=== PATIENT | female | born 1960 | race Caucasian/White ===

== ENCOUNTER 2016-10-01 11:35 | Observation (INO) | payer OTHER, BC ==
[2016-10-01] MEDS ORDERED: Ketorolac 30 MG/ML SDV IVPUSH ONE (11:40)
[2016-10-01] MEDS ORDERED: HYDROmorphone 1 MG/ML Syringe IVPUSH PRN (16:01)
[2016-10-01 16:37] LABS: CHLORIDE,CL 104 mmol/L (98-107); SODIUM,NA 140 mmol/L (136-145)
[2016-10-01] MEDS: Acetaminophen/HYDROcodone 325-10 MG Tab PO PRN ×2 (16:47→20:44)
[2016-10-01] MEDS: Ibuprofen 200 MG Tab PO PRN (19:43)
[2016-10-02] MEDS: Acetaminophen/HYDROcodone 325-10 MG Tab PO PRN ×5 (01:53→19:36)
--- NOTE | 2016-10-02 08:38 | ER ---
Date of Service: 10/01/2016 SUBJECTIVE: Yolie presents to emergency room with complaints of left knee pain. The patient states that she misstepped and fell onto her knee while at work. She states that since that time she has been experiencing severe discomfort and inability to bear weight without severe discomfort. EMS was summoned to the [facility], where she is an employee, who subsequently immobilized the patient's knee, gave her 1 mg of Dilaudid IV, and transported her to [facility]. On arrival, the patient was continuing to experience quite a bit of discomfort. She denies any injury other than what is isolated to her left knee. She does have a history of the right knee replacement and history of steroid injection of the left knee by [facility] surgery approximately 2 weeks ago for osteoarthritis. PAST MEDICAL HISTORY: 1. Right knee replacement. 2. Hypothyroidism. 3. Migraine headaches. 4. Anxiety. 5. Depression. 6. Asthma. 7. Hysterectomy. MEDICATIONS: 1. Levothyroxine 150 mcg daily. 2. BuSpar 10 mg daily. 3. Imitrex 100 mg p.r.n. 4. Citalopram 30 mg daily. ALLERGIES: NKDA. REVIEW OF SYSTEMS: General: No fever or chills. HEENT: Denies striking head. Chest: No shortness of breath or chest pain. Denies any palpitations. Abdomen: Denies any nausea, vomiting, or diarrhea. No melena, hematochezia, or hematemesis. Pelvis: Denies any pelvic pain. Musculoskeletal: Please see history of present illness. Complains only that of left knee pain. Neurovascular circulation, denies any numbness or tingling in distal portion of the left lower extremity. PHYSICAL EXAMINATION: General: This is a 55-year-old female, who is in no acute distress. Vital Signs: Blood pressure is 147/95, heart rate is 82, temperature is 36.5, respiratory rate is 20. Skin: Warm, pink, and dry. HEENT. Head is normocephalic, atraumatic. Lungs: Clear to auscultation. Heart: Regular rate and rhythm. Abdomen: Soft, nontender. There is no hepatosplenomegaly noted. There are no masses noted. Extremities: She does have point tenderness to the knee and particularly in the area of the distal femur. No obvious deformity noted to the patella or tibia/fibula. No obvious step-offs or deformity noted. Neurovascular, circulation, sensation, and motor function all within normal limits in the distal portion of the left lower extremity. RADIOGRAPHIC DATA: Plain film x-rays of the patient's left knee were obtained and she did have evidence of a nondisplaced multidirectional intraarticular fracture of the distal femur extending from lateral aspect on the proximal portion to medial portion and the distal portion. CT scan was performed at the request of Dr. Flower at [facility]. Again, there was evidence of fracture without significant step-off or distraction at the articular surface. There was moderate lipohemarthrosis in the articular space with evidence of moderate advanced tricompartmental osteoarthritis. The bones were noted to be mildly osteopenic. EMERGENCY ROOM COURSE: IV access had been established by the [facility] ambulance. The patient was given Toradol 30 mg IV. She stated knee immobilizer was placed. The patient stated that the discomfort was tolerable if she was not moving the extremity. ASSESSMENT: Left distal femur fracture involving the articular surface. PLAN: I did speak with Dr. Flower the orthopedic surgeon on-call at [facility]. He states that it would be best if this injury was handled nonoperatively as the patient will likely require replacement of that knee. He states that the patient will do better from an operative and postoperative standpoint if this injury is allowed to heal itself. Discussed findings with the patient and decision was made to admit the patient on observation status, so she can get some things taken care of at her home, regarding help with her activities for daily living, procuring a bedside commode, and other necessities. I did speak with Dr. Maria Eugenia Nick regarding possible acute admission and subsequent transition to swing bed, but decision was made that this would be impossible as she would not require a 3-day acute hospital stay. Subsequently decision was made to admit the patient to observation with PT and OT as well as Railway Switchman consult tomorrow to see how things will play out when she is discharged. We will treat her pain with hydrocodone and Dilaudid for severe discomfort, not amenable to oral analgesics. All questions were answered. The patient is a code level 1 with intubation and resuscitation. MWK: 10/01/2016 15:53:51 MODL: 10/01/2016 21:58:00 /[id number]
[2016-10-02] MEDS ORDERED: SUMAtriptan 50 MG Tab PO PRN (11:47)
[2016-10-02] MEDS: busPIRone 5 MG Tab PO SCH ×2 (12:07→19:37)
[2016-10-02] MEDS: Levothyroxine 150 MCG Tab PO SCH (12:07)
[2016-10-02] MEDS: Citalopram 20 MG Tab PO SCH (12:07)
[2016-10-02] MEDS: Ibuprofen 200 MG Tab PO PRN (14:43)
--- NOTE | 2016-10-02 17:06 | PN ---
Progress Note for TAMELA DESIR Date: 10/02/2016 Room #: VM.202 SUBJECTIVE: The patient states that her pain is under good control. She was admitted yesterday with a left distal femur fracture. She is currently on hydrocodone for around the clock pain control and IV Dilaudid as needed for severe pain. The patient has been seen by PT and OT. Physical therapy states that the patient will need to be admitted at least another 2 to 3 days and to assist with ambulation and activities for daily living. PHYSICAL EXAMINATION: General: This is a 55-year-old female patient, who is in no acute distress. Vital Signs: Blood pressure is 112/68, temperature is 36.9, respiratory rate is 20, O2 saturations 95%. Skin: Warm, pink, and dry. Lungs: Clear to auscultation. Heart: Regular rate and rhythm. Abdomen: Soft, nontender. Musculoskeletal: The patient is still wearing the knee immobilizer. She does have continued tenderness on palpation. Range of motion to the distal portion extremity is within normal limits. Pulses are palpable. ASSESSMENT: Distal left femur fracture. PLAN: Again, the patient will require continued hospitalization for work with physical therapy. Plan is to then transition the patient to swing bed. Dr. Maria Eugenia Nick was unwilling to admit the patient under her service, so Dr. Rose Oh was consulted and she stated that she would transition the patient from my service to swing bed from observation. Continue with hydrocodone as needed for pain. All questions were answered. MWK: 10/02/2016 15:54:12 MODL: 10/02/2016 16:57:14 /[id number]
[2016-10-03] MEDS: Acetaminophen/HYDROcodone 325-10 MG Tab PO PRN ×2 (00:08→05:06)
[2016-10-03] MEDS: Levothyroxine 150 MCG Tab PO SCH ×2 (05:06→06:48)
[2016-10-03 05:09] VITALS: BP 123/74
[2016-10-03] MEDS: busPIRone 5 MG Tab PO SCH (07:41)
[2016-10-03] MEDS: Citalopram 20 MG Tab PO SCH (07:41)
--- NOTE | 2016-10-03 07:44 | ER ---
Date of Service: 10/01/2016 ADDENDUM: This patient's emergency room note may be used as admission H and P. MWK: 10/03/2016 01:10:36 MODL: 10/03/2016 01:38:26 /[id number]
--- NOTE | 2016-10-04 02:35 | DISCH ---
HISTORY OF PRESENT ILLNESS: This is a 55-year-old, who fell coming down the stairs at work, suffering a distal left femur fracture. She was admitted for pain control. She has been using hydrocodone approximately 3 to 4 tablets per day. She has not required any IV Dilaudid. She is not having any trouble breathing. No shortness of breath. She has been constipated with no bowel movement since admission. Ortho was consulted, recommended 30 pounds' weightbearing with a walker. Repeat x-rays in 1 week due to concern for possible need for future knee replacement. No surgery at this time was recommended. ALLERGIES: None. MEDICATIONS: Levothyroxine, BuSpar, Imitrex, and Celexa. PAST MEDICAL HISTORY: Osteoarthritis with right knee replacement, hypothyroidism, migraine headaches, anxiety and depression, asthma. PAST SURGICAL HISTORY: Previous hysterectomy for surgical history as well. FAMILY HISTORY: Her sister is living. SOCIAL HISTORY: She is . 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 REVIEW OF SYSTEMS: General: No fever. No chills. Cardiac: No chest pain. Respiratory: No cough, no shortness of breath. Abdomen: No abdominal pain. Extremities: No edema. No calf tenderness. Otherwise, all systems reviewed and found to be negative unless otherwise stated. PHYSICAL EXAMINATION: Vital Signs: Included temperature 97.6, pulse 88, blood pressure 123/74, respiratory rate 12, and O2 96% on room air. General: She is in no acute distress. Heart: Regular rate and rhythm. S1, S2 without murmur. Lungs: Sounds are clear to auscultation bilaterally without crackles or wheezes. Abdomen: Positive bowel sounds. Soft and nontender. Extremities: Warm and dry. No edema. No calf tenderness. Homans sign negative. She is able to move the left ankle and toes. Her dorsal pedis pulses 2+ on that side. The knee is tender superiorly on exam with minimal swelling. No warmth or redness. She has it in near full extension with the knee immobilizer. ASSESSMENT: 1. Left distal femur fracture involving the articular surface. 2. Previous right knee replacement with osteoarthritis, hypothyroidism, anxiety, and depression. 3. History of asthma. PLAN: At this point, the patient will continue with swing bed cares. She is being transitioned over from observation status. I am going to give her Lovenox daily until discharge for DVT prophylaxis. We will start some stool softeners and laxatives with suppository if needed. We will continue hydrocodone for pain control. Anticipate that she will be discharged home Thursday with services like Home Health. barge worker is working on equipment. She may even require a wheelchair to get around her home. PT will also be working with her. I recommend the possibility of trying out some crutches as it may be more comfortable for her. I also have been working on arrangements for a followup appointment with Dr. Moncada on October 22. We will get repeat x-rays of that knee in one week per Ortho. MKA: 10/03/2016 08:55:06 MODL: 10/03/2016 12:43:16 /[id number]
== END 2016-10-03 09:30 | disposition swing bed (61) ==
LOC: VM.ED 11:35 → VM.MS 15:25
PROVIDERS: ADMIT Physician Assistant; ATTEND Physician Assistant
DX: S72.402A Unspecified fracture of lower end of left femur, initial encounter for closed fracture (principal); F41.8 Other specified anxiety disorders; J45.909 Unspecified asthma, uncomplicated; E03.9 Hypothyroidism, unspecified; Z96.651 Presence of right artificial knee joint; Z90.710 Acquired absence of both cervix and uterus; W10.9XXA Fall (on) (from) unspecified stairs and steps, initial encounter; Y92.89 Other specified places as the place of occurrence of the external cause; Z79.899 Other long term (current) drug therapy
CPT/HCPCS: 36415; 73562; 73700; 80053; 85025; 85610; 96374; 97110; 97116; 97161; 97165; 97530; 97535; 99285; A9270; J1885; G0378

== ENCOUNTER 2016-10-03 09:21 | Inpatient (IN) | payer OTHER, BC ==
[2016-10-03] MEDS ORDERED: Acetaminophen/HYDROcodone 325-10 MG Tab PO PRN (09:41)
[2016-10-03] MEDS ORDERED: SUMAtriptan 50 MG Tab PO PRN (09:41)
[2016-10-03] MEDS ORDERED: Enoxaparin 40 MG/0.4 ML Syringe SUBCUT SCH (09:43)
[2016-10-03] MEDS ORDERED: Magnesium Hydroxide 400 MG/5 ML Susp 30 ML Cup PO PRN (09:44)
[2016-10-03] MEDS ORDERED: Bisacodyl 10 MG Supp RECTAL PRN (09:45)
[2016-10-03] MEDS ORDERED: Acetaminophen/HYDROcodone 325-10 MG Tab PO ONE ×2 (10:30→14:45)
[2016-10-03] MEDS: Polyethylene Glycol 3350 Powder 17 GM Packet PO SCH (10:35)
[2016-10-03] MEDS: BUSPIRONE PO SCH (19:16)
[2016-10-03] MEDS: ACET PO PRN ×2 (19:17→23:37)
[2016-10-03] MEDS: HYDROCODONE PO PRN ×2 (19:17→23:37)
[2016-10-03] MEDS ORDERED: busPIRone 5 MG Tab PO SCH (20:00)
[2016-10-03] MEDS: Ibuprofen 200 MG Tab PO PRN (21:03)
[2016-10-04] MEDS: HYDROCODONE PO PRN ×5 (05:09→23:48)
[2016-10-04] MEDS: ACET PO PRN ×5 (05:09→23:48)
[2016-10-04] MEDS: LEVOTHYROXINE PO SCH ×2 (05:10→06:20)
[2016-10-04] MEDS ORDERED: Levothyroxine 150 MCG Tab PO SCH (07:00)
[2016-10-04] MEDS: Polyethylene Glycol 3350 Powder 17 GM Packet PO SCH (07:49)
[2016-10-04] MEDS: ESCITALOPRAM PO SCH (07:50)
[2016-10-04] MEDS: BUSPIRONE PO SCH ×2 (07:51→20:13)
[2016-10-04] MEDS: ENOXAPARIN SUBCUT SCH (07:53)
[2016-10-04] MEDS ORDERED: Citalopram 20 MG Tab PO SCH (08:00)
[2016-10-04] MEDS: Ibuprofen 200 MG Tab PO PRN (20:13)
[2016-10-05] MEDS: LEVOTHYROXINE PO SCH (06:18)
[2016-10-05] MEDS: HYDROCODONE PO PRN ×4 (06:18→19:52)
[2016-10-05] MEDS: ACET PO PRN ×4 (06:18→19:52)
[2016-10-05] MEDS: Polyethylene Glycol 3350 Powder 17 GM Packet PO SCH (08:03)
[2016-10-05] MEDS: ESCITALOPRAM PO SCH (08:04)
[2016-10-05] MEDS: SUMATRIPTAN PO PRN (08:05)
[2016-10-05] MEDS: ENOXAPARIN SUBCUT SCH (08:07)
[2016-10-05] MEDS: BUSPIRONE PO SCH ×2 (08:07→19:52)
[2016-10-05] MEDS ORDERED: Calcium Carbonate 750 MG Tab.Chew PO PRN (16:56)
[2016-10-05] MEDS: Ibuprofen 200 MG Tab PO PRN (18:01)
[2016-10-06] MEDS: HYDROCODONE PO PRN ×4 (03:18→19:40)
[2016-10-06] MEDS: ACET PO PRN ×4 (03:18→19:40)
[2016-10-06] MEDS: LEVOTHYROXINE PO SCH (06:18)
[2016-10-06] MEDS: Polyethylene Glycol 3350 Powder 17 GM Packet PO SCH (07:22)
[2016-10-06] MEDS: ESCITALOPRAM PO SCH (07:24)
[2016-10-06] MEDS: BUSPIRONE PO SCH ×2 (07:24→19:40)
[2016-10-06] MEDS: ENOXAPARIN SUBCUT SCH (07:25)
[2016-10-06] MEDS: SUMATRIPTAN PO PRN ×2 (07:25→22:08)
[2016-10-07] MEDS: ACET PO PRN ×4 (02:16→20:05)
[2016-10-07] MEDS: HYDROCODONE PO PRN ×4 (02:16→20:05)
[2016-10-07] MEDS: LEVOTHYROXINE PO SCH ×2 (05:36→06:31)
[2016-10-07] MEDS: ESCITALOPRAM PO SCH (07:34)
[2016-10-07] MEDS: ENOXAPARIN SUBCUT SCH (07:34)
[2016-10-07] MEDS: BUSPIRONE PO SCH ×2 (07:35→20:05)
[2016-10-07] MEDS: Polyethylene Glycol 3350 Powder 17 GM Packet PO SCH (07:35)
[2016-10-08] MEDS: ACET PO PRN ×3 (04:46→20:19)
[2016-10-08] MEDS: HYDROCODONE PO PRN ×3 (04:46→20:19)
[2016-10-08] MEDS: LEVOTHYROXINE PO SCH (06:23)
[2016-10-08] MEDS: BUSPIRONE PO SCH ×2 (07:44→20:20)
[2016-10-08] MEDS: ESCITALOPRAM PO SCH (07:44)
[2016-10-08] MEDS: Polyethylene Glycol 3350 Powder 17 GM Packet PO SCH (07:46)
[2016-10-08] MEDS: ENOXAPARIN SUBCUT SCH (07:46)
[2016-10-09] MEDS: LEVOTHYROXINE PO SCH (06:22)
[2016-10-09] MEDS: HYDROCODONE PO PRN ×3 (06:23→18:53)
[2016-10-09] MEDS: ACET PO PRN ×3 (06:23→18:53)
[2016-10-09] MEDS: BUSPIRONE PO SCH ×2 (08:21→19:33)
[2016-10-09] MEDS: ESCITALOPRAM PO SCH (08:22)
[2016-10-09] MEDS: ENOXAPARIN SUBCUT SCH (08:22)
[2016-10-09] MEDS: Polyethylene Glycol 3350 Powder 17 GM Packet PO SCH (08:23)
--- NOTE | 2016-10-09 22:22 | PCM.DCSUM1 ---
Discharge Summary - Hospital Course Free Text/Narrative:: 55 year old female admitted to swing bed for assistance with ADL's and pain control after a sustaining left femur fracture. - Discharge Data Discharge Date: 10/10/16 Discharge Disposition: Home, Self-Care 01 Condition: Good - Patient Summary/Data Consults: Consultations 10/03/16 09:41 Consult to Resaw Carriage Operator [CONS] Routine PT Evaluation and Treatment [CONS] Routine - Patient Instructions Diet: Usual Diet as Tolerated Activity: Non Weight Bearing Driving: Do Not Drive Other/Special Instructions: Schedule appt with Dr. Beyer in 1-2 weeks - Discharge Plan Prescriptions/Med Rec: Hydrocodone/Acet 10/325mg 1 tab PO Q8HR PRN #40 tab PRN Reason: Pain Docusate Sodium/Sennosides [Senna Plus] 2 tab PO BID #120 tablet Home Medications: Home Meds Escitalopram Oxalate [Escitalopram Oxalate] 30 mg PO DAILY 10/01/16 [History] Levothyroxine Sodium [Levothyroxine Sodium] 150 mcg PO ACBREAKFAST 10/01/16 [ History] SUMAtriptan Succinate [Sumatriptan Succinate] 50 mg PO DAILY PRN 10/01/16 [ History] busPIRone HCl [Buspirone HCl] 10 mg PO BID 10/01/16 [History] Buspirone 10mg 0 mg PO BID 10/09/16 [Rx] Calcium Carbonate [Tums Extra Strength] 750 mg PO Q2H PRN #0 tab.chew 10/09/16 [ Rx] Docusate Sodium/Sennosides [Senna Plus] 2 tab PO BID #120 tablet 10/09/16 [Rx] Escitalopram (Own Supply) 0 mg PO DAILY 10/09/16 [Rx] Hydrocodone/Acet 10/325mg 1 tab PO Q8HR PRN #40 tab 10/09/16 [Rx] Ibuprofen [Motrin] 600 mg PO Q6H PRN #0 tablet 10/09/16 [Rx] Levothyroxine (Own Supply) 0 mcg PO DAILY@0700 10/09/16 [Rx] Magnesium Hydroxide [Milk of Magnesia] 30 ml PO Q6H PRN #0 cup 10/09/16 [Rx] Polyethylene Glycol 3350 [MiraLAX] 17 gm PO DAILY packet 10/09/16 [Rx] Sumatriptan (Own Supply) 0 mg PO DAILY PRN 10/09/16 [Rx] - General Info Date of Service: 10/09/16 Admission Dx/Problem (Free Text: Left femur fracture Functional Status: Reports: Pain Controlled - Review of Systems General: Denies: Fever HEENT: Reports: No Symptoms Pulmonary: Reports: No Symptoms. Denies: Shortness of Breath, Cough Cardiovascular: Denies: Chest Pain Genitourinary: Reports: No Symptoms Musculoskeletal: Reports: Leg Pain Skin: Reports: No Symptoms - Patient Data Vitals - Most Recent: Last Vital Signs Temp 36.8 C 10/09/16 06:00 Pulse 60 10/09/16 06:00 Resp 18 10/09/16 06:00 BP 109/59 L 10/09/16 06:00 Pulse Ox 98 10/09/16 06:00 Weight - Most Recent: 79.832 kg I&O - Last 24 hours: Intake & Output 10/09/16 10/09/16 10/09/16 06:59 14:59 22:59 Intake Total 120 840 Output Total 1000 Balance -880 840 Med Orders - Current: Current Medications Bisacodyl (Dulcolax) 10 mg RECTAL DAILY PRN PRN Reason: Constipation Calcium Carbonate/Glycine (Tums Extra Strength) 750 mg PO Q2H PRN PRN Reason: Dyspepsia Ibuprofen (Motrin) 600 mg PO Q6H PRN PRN Reason: Pain (mild 1-3) Last Admin: 10/05/16 18:01 Dose: 600 mg Magnesium Hydroxide (Milk Of Magnesia) 30 ml PO Q6H PRN PRN Reason: Constipation Last Admin: 10/07/16 05:36 Dose: 30 ml Hydrocodone/Acet 10/ (325mg (Own Supply)) 1 tab PO Q4H PRN PRN Reason: moderate pain (4-6 out of 10) Last Admin: 10/09/16 18:53 Dose: 1 tab Buspirone (Own (Supply)) 0 mg PO BID [facility] Last Admin: 10/09/16 19:33 Dose: 10 mg Escitalopram (Own (Supply)) 0 mg PO DAILY [facility] Last Admin: 10/09/16 08:22 Dose: 30 mg Levothyroxine (Own (Supply)) 0 mcg PO DAILY@0700 [facility] Last Admin: 10/09/16 06:22 Dose: 150 mcg Sumatriptan (Own (Supply)) 0 mg PO DAILY PRN PRN Reason: Headache Last Admin: 10/06/16 22:08 Dose: 25 mg Enoxaparin (Own (Supply)) 0 mg SUBCUT DAILY [facility] Last Admin: 10/09/16 08:22 Dose: 40 mg Polyethylene Glycol (Miralax) 17 gm PO DAILY [facility] Last Admin: 10/09/16 08:23 Dose: 17 gm Senna/Docusate Sodium (Senna Plus) 2 tab PO BID [facility] Last Admin: 10/09/16 19:33 Dose: 2 tab Discontinued Medications Hydrocodone Bitart/Acetaminophen ([place] 325-10 Mg) 1 tab PO ONETIME ONE Stop: 10/03/16 10:31 Last Admin: 10/03/16 10:36 Dose: 1 tab Hydrocodone Bitart/Acetaminophen ([place] 325-10 Mg) 1 tab PO ONETIME ONE Stop: 10/03/16 14:46 Last Admin: 10/03/16 14:45 Dose: 1 tab - Exam General: Reports: Alert, Oriented HEENT: Reports: Pupils Equal, Pupils Reactive Lungs: Reports: Clear to Auscultation Cardiovascular: Reports: Regular Rate, Regular Rhythm GI/Abdominal Exam: Normal Bowel Sounds Extremities: Normal Inspection Skin: Reports: Warm, Dry, Intact *Q Meaningful Use (DIS) - VTE *Q VTE Criteria *Q: - Stroke *Q Stroke Criteria *Q: - AMI *Q AMI Criteria *Q:
[2016-10-10] MEDS: HYDROCODONE PO PRN ×2 (03:41→13:22)
[2016-10-10] MEDS: ACET PO PRN ×2 (03:41→13:22)
[2016-10-10 06:13] VITALS: BP 98/53
[2016-10-10] MEDS: LEVOTHYROXINE PO SCH (06:24)
[2016-10-10] MEDS: Polyethylene Glycol 3350 Powder 17 GM Packet PO SCH (07:43)
[2016-10-10] MEDS: BUSPIRONE PO SCH (07:43)
[2016-10-10] MEDS: ESCITALOPRAM PO SCH (07:44)
[2016-10-10] MEDS: ENOXAPARIN SUBCUT SCH (07:45)
== END 2016-10-10 16:30 | disposition home or self-care (01) | DRG 561 ==
LOC: VM.MS 09:30
PROVIDERS: ADMIT Internal Medicine; ATTEND Family Medicine
DX: S72.92XD Unspecified fracture of left femur, subsequent encounter for closed fracture with routine healing (principal); W10.9XXD Fall (on) (from) unspecified stairs and steps, subsequent encounter; Y92.89 Other specified places as the place of occurrence of the external cause; E03.9 Hypothyroidism, unspecified; J45.909 Unspecified asthma, uncomplicated; F41.8 Other specified anxiety disorders; M17.11 Unilateral primary osteoarthritis, right knee; Z96.651 Presence of right artificial knee joint; Z79.899 Other long term (current) drug therapy
CPT/HCPCS: 36415; 85027; 97116-GP; 97535-GO; A9270-GY

== ENCOUNTER 2017-05-13 22:01 | Emergency (ER) | payer BC ==
--- NOTE | 2017-05-13 22:04 | EDM.PDOC ---
ED HPI GENERAL MEDICAL PROBLEM - General Chief Complaint: Chest Pain Stated Complaint: HTN, chest pain Time Seen by Provider: 05/13/17 22:03 Source of Information: Reports: Patient, RN, RN Notes Reviewed History Limitations: Reports: No Limitations - History of Present Illness INITIAL COMMENTS - FREE TEXT/NARRATIVE: Patient presents to the ED at [facility] complaining of chest pain that started around 21:30 this evening. Patient states she did drink some vinegar water about 1/2 prior for "upset stomach." She did consume one alcoholic beverage this evening. She does have a history of acid reflux which she is trying to control with her diet. No focal neurological problems. No SOB. The chest pain is around the epigastric area. No radiation of the pain. No back pain. Patient states she had chest pain a while back but it resolved on its own. No abdominal pain. Patient denies any N/V/D. She usually has a low blood pressure that runs in the 100's. She is not on any antihypertensives. She does take Vit K for "thinner blood." Onset: Today Duration: Constant Location: Reports: Chest Quality: Reports: Burning, Pressure Severity: Mild Improves with: Reports: None Worsens with: Reports: None Context: Denies: Activity, Sick Contact, Trauma Associated Symptoms: Reports: No Other Symptoms Treatments COURTROOM DEPUTY OR CALENDAR CLERK: Reports: Other (see below) (None) Chest Pain Score (Numeric/FACES): 6 - Related Data Allergies Allergy/AdvReac Type Severity Reaction Status Date / Time No Known Allergies Allergy Verified 05/13/17 22:13 Home Meds: Home Meds Levothyroxine Sodium [Levothyroxine Sodium] 150 mcg PO ACBREAKFAST 10/01/16 [ History] SUMAtriptan Succinate [Sumatriptan Succinate] 50 mg PO DAILY PRN 10/01/16 [ History] busPIRone HCl [Buspirone HCl] 10 mg PO BID 10/01/16 [History] Calcium Carbonate [Tums Extra Strength] 750 mg PO Q2H PRN #0 tab.chew 10/09/16 [ Rx] Docusate Sodium/Sennosides [Senna Plus] 2 tab PO BID #120 tablet 10/09/16 [Rx] Magnesium Hydroxide [Milk of Magnesia] 30 ml PO Q6H PRN 05/13/17 [History] Polyethylene Glycol 3350 [MiraLAX] 17 gm PO DAILY PRN 05/13/17 [History] Past Medical History Respiratory History: Reports: Asthma Neurological History: Reports: Migraines Psychiatric History: Reports: Anxiety, Depression Endocrine/Metabolic History: Reports: Hypothyroidism - Past Surgical History Female Surgical History: Reports: Hysterectomy Musculoskeletal Surgical History: Reports: Arthroscopic Knee, Knee Replacement Social & Family History - Tobacco Use Smoking Status *Q: Never Smoker Second Hand Smoke Exposure: No - Caffeine Use Caffeine Use: Reports: Coffee - Alcohol Use Days Per Week of Alcohol Use: 7 Number of Drinks Per Day: 1 Total Drinks Per Week: 7 - Recreational Drug Use Recreational Drug Use: No ED ROS GENERAL - Review of Systems Review Of Systems: See Below Constitutional: Denies: Fever, Chills, Weakness Respiratory: Denies: Shortness of Breath, Cough Cardiovascular: Reports: Chest Pain, Blood Pressure Problem. Denies: Lightheadedness, Palpitations GI/Abdominal: Denies: Abdominal Pain, Nausea, Vomiting Skin: Reports: No Symptoms Neurological: Reports: No Symptoms. Denies: Dizziness, Headache ED EXAM, GENERAL - Physical Exam Exam: See Below Exam Limited By: No Limitations General Appearance: Alert, No Apparent Distress Respiratory/Chest: No Respiratory Distress, Lungs Clear, Normal Breath Sounds Cardiovascular: Normal Peripheral Pulses, Regular Rate, Rhythm. No: No Murmur Peripheral Pulses: 2+: Radial (L), Radial (R) GI/Abdominal: Normal Bowel Sounds, Soft, Non-Tender Neurological: Alert, Oriented Skin Exam: Warm, Dry, Intact, Normal Color, No Rash EKG INTERPRETATION EKG Date: 05/13/17 Time: 22:07 Rhythm: NSR Rate (Beats/Min): 90 Greene: Normal P-Wave: Present QRS: Normal ST-T: Normal QT: Normal SD/PQ Interval: 0.15 Comparison: NA - No Prior EKG EKG Interpretation Comments: 1. Sinus Rhythm 2. Nonspecific ST & T-wave abnormality 3. Borderline ECG Course - Vital Signs Last Recorded V/S: Last Vital Signs Temp 37.1 C 05/13/17 22:10 Pulse 91 05/13/17 22:30 Resp 18 05/13/17 22:10 BP 117/72 05/13/17 22:30 Pulse Ox 98 05/13/17 22:10 - Orders/Labs/Meds Orders: Active Orders 24 hr Category Date Time Status EKG 12 Lead [EKG Documentation Completion] [RC] STAT Care 05/13/17 22:03 Active Chest 2V [CR] Stat Exams 05/13/17 22:03 Taken Labs: Laboratory Tests 05/13/17 05/13/17 05/13/17 Range/Units 22:14 22:14 22:14 WBC 6.0 (4.0-10.0) x10^3/uL RBC 4.53 (4.00-5.50) x10^6/uL Hgb 15.2 D (12.0-16.0) g/dL Hct 43.8 (33.0-47.0) % MCV 96.7 H (78.0-93.0) fL MCH 33.6 H (26.0-32.0) pg MCHC 34.7 (32.0-36.0) g/dL RDW Coeff of Ravinder 11.5 (10.0-15.0) % Plt Count 308 (130-400) x10^3/uL Neut % (Auto) 45.4 L (50.0-80.0) % Lymph % (Auto) 41.3 (25.0-50.0) % Fajardo % (Auto) 9.6 (2.0-11.0) % Eos % (Auto) 2.7 (0.0-4.0) % Baso % (Auto) 1.0 (0.2-1.2) % PT 10.1 (9.8-11.8) SEC INR 0.9 L (2.0-3.5) Sodium 138 (136-145) mmol/L Potassium 3.5 (3.5-5.1) mmol/L Chloride 102 (98-107) mmol/L Carbon Dioxide 27 (21-32) mmol/L BUN 16 (7-18) mg/dL Creatinine 0.8 (0.55-1.02) mg/dL Est Cr Clr Drug Dosing TNP Estimated GFR (MDRD) > 60 Glucose 108 H (74-106) mg/dL Calcium 9.5 (8.5-10.1) mg/dL Magnesium 2.0 (1.8-2.4) mg/dL Creatine Kinase 154 (26-192) U/L POC Troponin I (0.00-0.08) ng/mL 05/13/17 Range/Units 22:25 WBC (4.0-10.0) x10^3/uL RBC (4.00-5.50) x10^6/uL Hgb (12.0-16.0) g/dL Hct (33.0-47.0) % MCV (78.0-93.0) fL MCH (26.0-32.0) pg MCHC (32.0-36.0) g/dL RDW Coeff of Ravinder (10.0-15.0) % Plt Count (130-400) x10^3/uL Neut % (Auto) (50.0-80.0) % Lymph % (Auto) (25.0-50.0) % Fajardo % (Auto) (2.0-11.0) % Eos % (Auto) (0.0-4.0) % Baso % (Auto) (0.2-1.2) % PT (9.8-11.8) SEC INR (2.0-3.5) Sodium (136-145) mmol/L Potassium (3.5-5.1) mmol/L Chloride (98-107) mmol/L Carbon Dioxide (21-32) mmol/L BUN (7-18) mg/dL Creatinine (0.55-1.02) mg/dL Est Cr Clr Drug Dosing Estimated GFR (MDRD) Glucose (74-106) mg/dL Calcium (8.5-10.1) mg/dL Magnesium (1.8-2.4) mg/dL Creatine Kinase (26-192) U/L POC Troponin I 0.00 (0.00-0.08) ng/mL Meds: Medications Discontinued Medications Generic Name Dose Route Start Last Admin Trade Name Freq PRN Reason Stop Dose Admin Al Hydroxide/Mg Hydroxide 30 ml 05/13/17 22:47 05/13/17 22:50 Gi Cocktail PO 05/13/17 22:48 30 ml ONETIME ONE Administration - Radiology Interpretation Free Text/Narrative:: CXR: Normal chest x-rays - see scanned report in EMR Departure - Departure Time of Disposition: 23:07 Disposition: Home, Self-Care 01 Reason for Transfer *Q: Other Condition: Good Clinical Impression: Acid reflux Qualifiers: Esophagitis presence: with esophagitis Qualified Code(s): K21.0 - Gastro- esophageal reflux disease with esophagitis Instructions: Gastroesophageal Reflux Disease, Adult Referrals: [facility] [Primary Care Provider] - Forms: ED Department Discharge Additional Instructions: 1. Stay well hydrated and rest 2. Continue home medications without any changes 3. May need a heart burn medication in the future if symptoms become more persistent 4. See your Primary as symptoms warrant 5. Call with any questions/concerns - Problem List Review Problem List Initiated/Reviewed/Updated: Yes - My Orders Last 24 Hours: My Active Orders 05/13/17 22:03 EKG 12 Lead [EKG Documentation Completion] [RC] STAT Chest 2V [CR] Stat - Assessment/Plan Last 24 Hours: My Active Orders 05/13/17 22:03 EKG 12 Lead [EKG Documentation Completion] [RC] STAT Chest 2V [CR] Stat Assessment:: GERD Esophagitis Plan: Labs and EKG no impressive for any cardiac etiology for patients presenting symptoms. It appears the patients symptoms are more related to GERD and patient just having drank vinegar water. However, nitro did help with the pain. Patient was given a GI cocktail to help differentiate the pain. Patient's epigastric symptoms completely resolved after the GI cocktail. Suspect this is more of a GI issues vs cardiac. Will discharge home and have the patient follow up with her PCP as symptoms warrant. She may benefit from a PPI in the future depending if diet changes and vinegar water continue to help with the esophagitis. Plan discussed with patient. I did offer admission to watch serial enzymes, but patient did decline admission and states she will follow up with her PCP.
[2017-05-13 22:31] VITALS: BP 117/72
[2017-05-13 22:39] LABS: CHLORIDE,CL 102 mmol/L (98-107); SODIUM,NA 138 mmol/L (136-145)
[2017-05-13] MEDS ORDERED: GI Cocktail Oral Solution 30 ML PO ONE (22:47)
== END 2017-05-13 23:14 | disposition home or self-care (01) ==
LOC: VM.ED 22:01
DX: K21.0 Gastro-esophageal reflux disease with esophagitis (principal); J45.909 Unspecified asthma, uncomplicated; E03.9 Hypothyroidism, unspecified; F41.9 Anxiety disorder, unspecified; F32.9 Major depressive disorder, single episode, unspecified; Z79.899 Other long term (current) drug therapy
CPT/HCPCS: 36415; 71046; 80048; 82550; 83735; 84484; 85025; 85610; 93005; 99285; A9270